=== PATIENT | female | born 1955 | race Caucasian/White ===

== ENCOUNTER 2018-04-22 10:24 | Observation (INO) ==
[2018-04-22 11:49] VITALS: O2SAT 97
[2018-04-24 12:51] VITALS: BP 132/63; PULSE 61; RESP 16
[2018-04-24 13:10] VITALS: TEMP 97.9
== END 2018-04-23 13:12 | disposition home or self-care (01) ==
LOC: UNDODISOB → NEPHCDU 10:24 → NEDA 10:24 → NEPE 10:24 → NEPHCDU 19:29
PROVIDERS: ADMIT Internal Medicine Interventional Cardiology; ATTEND Internal Medicine Interventional Cardiology